=== PATIENT | female | born 1955 | race Caucasian/White ===

== ENCOUNTER 2022-04-18 13:29 | Emergency (ER) | payer OTHER, BC ==
[2022-04-18] MEDS ORDERED: NA CHLORIDE 0.9% 1,000 ML ONE (14:41)
[2022-04-18 14:49] LABS: Absolute Lymphocytes (CBC) 0.8 K/uL (0.7-4.9); Lymphocytes % 12.1 % (15.3-44.8); MCV 84.4 fL (80-100); MPV 7.4 fL (7.6-11.3); RBC Red Blood Cell Count 4.38 M/uL (3.86-4.86)
[2022-04-18 15:01] LABS: Albumin 2.5 g/dL (3.4-5.0); Bilirubin Total 0.4 mg/dL (0.2-1.0); Magnesium 2.6 mg/dL (1.8-2.4); Potassium 3.7 mmol/L (3.5-5.1); Protein, Total 7.9 g/dL (6.4-8.2); Troponin High Sensitivity 6.1 pg/mL (<58.9)
--- NOTE | 2022-04-18 15:35 | RAD REPORT ---
EXAM DESCRIPTION: RAD - Chest Single View - 04/18/2022 3:04 pm CLINICAL HISTORY: COUGH COMPARISON: Chest Pa And Lat (2 Views) dated 12/19/2018; ABDOMEN 1 VIEW KUB dated 05/08/2012 FINDINGS: Lines: None. Lungs: Coarsening of the pulmonary interstitium. Pleural: No significant pleural effusions or pneumothorax. Cardiac: The heart size is within normal limits. Bones: No acute fractures. Other: IMPRESSION: Nonspecific coarsening of the interstitium could reflect mild infection or inflammation such as a bronchitis. No consolidative airspace disease or edema.
[2022-04-18] MEDS ORDERED: ALBUTEROL 2.5 MG/3 ML NEB SOL ONE (17:18)
[2022-04-18] MEDS ORDERED: IPRATROPIUM BROM 0.5MG/2.5ML ONE (17:18)
[2022-04-18] MEDS ORDERED: predniSONE 20 MG TAB ONE (17:21)
[2022-04-18 17:23] LABS: Urine Blood Negative (Negative); Urine Glucose Negative (Negative); Urine Protein 1+ (Negative); Urine Specific Gravity 1.025 (1.005-1.030)
[2022-04-18 17:39] LABS: Urine Bacteria <20 /HPF (<20); Urine RBC <5 /HPF (None Seen)
[2022-04-18 17:40] LABS: Urine Mucus 2+ /HPF (None Seen)
--- NOTE | 2022-04-18 17:46 | ER ---
Nurse's Notes [facility] Name: Peggy Villasenor Age: 67 yrs Sex: Female : 1955 Arrival Date: 04/18/2022 Time: 13:33 Bed 5 Private MD: Petros Luna V Diagnosis: Acute bronchitis, unspecified;Coronavirus infection, unspecified;Muscle weakness (generalized) Presentation: 04/18 13:58 Chief complaint: Patient states: Covid positive for 15 days. States she had no appetite ll1 still, extreme fatigue, sleeps all day still No fever the past 4 days. Coronavirus screen: Vaccine status: Patient reports receiving the 2nd dose of the covid vaccine. Client denies travel out of the [place] in the last 14 days. chills, congestion, cough unrelated to allergies, diarrhea, difficulty breathing, fatigue, fever, headache, shortness of breath, Client presents with at least one sign or symptom that may indicate coronavirus-19. Standard/surgical mask placed on the client. Ebola Screen: Patient denies travel to an Ebola-affected area in the 21 days before illness onset. No acute neurological deficit is noted. Initial Sepsis Screen: Does the patient meet any 2 criteria? HR > 90 bpm. No. Patient's initial sepsis screen is negative. Does the patient have a suspected source of infection? Yes: Productive cough/pneumonia. Risk Assessment: Do you want to hurt yourself or someone else? Patient reports no desire to harm self or others. Onset of symptoms was April 03, 2022. 13:58 Method Of Arrival: Wheelchair ll1 13:58 Acuity: TIFFANIE 2 ll1 Triage Assessment: 14:01 General: Appears ill, Behavior is cooperative, appropriate for age. Pain: Complains of ll1 pain in all over Pain currently is 3 out of 10 on a pain scale. Quality of pain is described as aching. Neuro: Reports headache weakness. Respiratory: Reports shortness of breath cough that is. GI: Reports diarrhea. 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 - Social history:: Smoking status: Patient denies any tobacco usage or history of. Screenin:27 Abuse screen: Denies threats or abuse. Denies injuries from another. Nutritional kwong screening: no appetite . Tuberculosis screening: No symptoms or risk factors identified. Fall Risk Gait- Weak (10 pts.). Assessment: 14:27 General: Appears in no apparent distress. Behavior is calm, cooperative. Pain: Denies kwong pain. Neuro: No deficits noted. Level of Consciousness is awake, alert, obeys commands, Oriented to person, place, time, situation, Reports weakness. GI: Reports intolerance of fluids, intolerance of food. Vital Signs: 13:58 BP 109 / 56; Pulse 106; Resp 18; Temp 97.7; Pulse Ox 93% on R/A; Weight 93.89 kg; ll1 Height 5 ft. 8 in. (172.72 cm); Pain 3/10; 17:25 BP 126 / 70; Pulse 85; Resp 18; Pulse Ox 100% on Nebulizer Mask; kwong 13:58 Body Mass Index 31.47 (93.89 kg, 172.72 cm) ll1 ED Course: 13:33 Patient arrived in ED. rg4 13:33 Petros Luna MD is Private Physician. rg4 13:44 Adeline Meléndez MD is Attending Physician. sd2 14:00 Triage completed. ll1 14:01 Arm band placed on Patient placed in an exam room, on a stretcher. ll1 14:02 Rosalie Friedman, NHUNG is Primary Nurse. kwong 14:27 Patient has correct armband on for positive identification. Bed in low position. kwong 14:27 No provider procedures requiring assistance completed. kwong 14:34 Procalcitonin Sent. mb7 14:34 BNP Sent. mb7 14:34 Magnesium Sent. mb7 14:34 CMP Sent. mb7 14:34 Troponin High Sensitivity Sent. mb7 14:34 CBC with Diff Sent. mb7 14:34 EKG done, by ED staff, reviewed by Adeline Meléndez MD. Inserted saline lock: 20 gauge mb7 in right antecubital area, using aseptic technique. Blood collected. 15:06 XRAY Chest (1 view) In Process Unspecified. EDMS 17:24 Urine Microscopic Only Sent. kwong 17:45 Petros Luna MD is Referral Physician. sd2 17:57 IV discontinued, intact, Pressure dressing applied. kwong Administered Medications: 14:55 Drug: NS 0.9% 1000 ml Route: IV; Rate: 1000 ml; Site: right antecubital; kwong 17:24 Drug: DuoNeb (albuterol 2.5 mg, ipratropium 0.5 mg) (3:1) (2.5 mg - 0.5 mg) 3 ml Route: kwong Nebulizer; 17:24 Follow up: Response: No adverse reaction kwong 17:24 Drug: predniSONE 60 mg Route: PO; kwong 17:24 Follow up: Response: No adverse reaction kwong Medication: 14:27 VIS not applicable for this client. kwong Outcome: 17:46 Discharge ordered by . sd2 17:57 Discharged to home ambulatory. kwong 17:57 Condition: good 17:57 Discharge instructions given to patient, family, Prescriptions given X 3. 17:57 Patient left the ED. kwong Signatures: Dispatcher [employer] Precious Argueta 4 Blanca Stover RN RN ll1 Jennifer Nguyen mb7 Rosalie Friedman RN RN ha Dunlop, Stephanie, MD MD sd2
--- NOTE | 2022-04-18 17:46 | EDPHYS ---
Physician Documentation [facility] Name: Peggy Villasenor Age: 67 yrs Sex: Female : 1955 Arrival Date: 04/18/2022 Time: 13:33 Bed 5 Private MD: Petros Luna V ED Physician Adeline Meléndez HPI: 04/18 14:10 This 67 yrs old Female presents to ER via Wheelchair with complaints of Weakness, sd2 Dehydration. 14:10 67 yo F presents with CC of generalized weakness. Reports she tested positive for COVID sd2 2 weeks ago and initially had intermittent fever for 1 week which has since subsided. She continues to have productive cough, congestion and progressively worsening weakness. Denies any chest pain or SOB. Denies vomiting but does endorse ongoing diarrhea. States lack of appetite but is drinking Gatorade and Boost at home.. Historical: - Allergies: 14:00 PENICILLINS; ll1 - PMHx: 14:00 RA; ll1 - PSHx: 14:00 gastric bypass; ll1 - Immunization history:: Client reports receiving the 2nd dose of the Covid vaccine, Flu vaccine status is unknown. - Social history:: Smoking status: Patient denies any tobacco usage or history of. ROS: 14:10 Constitutional: Positive for fever, malaise, poor PO intake, Negative for body aches, sd2 chills. 14:10 Eyes: Negative for itching, pain, redness. 14:10 ENT: Positive for sinus congestion, Negative for injury or acute deformity, ear pain. 14:10 Cardiovascular: Negative for chest pain, edema, acute changes. 14:10 Respiratory: Positive for cough, Negative for shortness of breath. 14:10 Abdomen/GI: Positive for diarrhea, Negative for abdominal pain, nausea and vomiting. 14:10 : Negative for urinary symptoms, burning with urination, difficulty urinating. 14:10 MS/extremity: Negative for injury or acute deformity, deformity, rash. 14:10 Skin: Negative for cellulitis, rash, swelling. 14:10 Neuro: Positive for weakness, Negative for numbness, tingling. Exam: 14:10 Constitutional: This is a well developed, well nourished patient who is awake, alert, sd2 and in no acute distress. Head/Face: Normocephalic, atraumatic. Chest/axilla: Normal chest wall appearance and motion. Nontender with no deformity. Cardiovascular: Regular rate and rhythm with a normal S1 and S2. No gallops, murmurs, or rubs. 2+ distal pulses. 2 second capillary refill. Respiratory: Lungs have equal breath sounds bilaterally, clear to auscultation and percussion. No rales, rhonchi or wheezes noted. No increased work of breathing, no retractions or nasal flaring. Abdomen/GI: Soft, non-tender, with normal bowel sounds. No guarding or rebound. No evidence of tenderness throughout. Skin: Warm, dry with normal turgor. Normal color with no rashes, no lesions, and no evidence of cellulitis. MS/ Extremity: Pulses equal, no cyanosis. Neurovascular intact. Full, normal range of motion. Ambulatory without difficulty. Psych: Awake, alert, with orientation to person, place and time. Behavior, mood, and affect are within normal limits. 14:27 ECG was reviewed by the Attending Physician. NSR, rate 87, no STEMI criteria, PRWP sd2 Vital Signs: 13:58 BP 109 / 56; Pulse 106; Resp 18; Temp 97.7; Pulse Ox 93% on R/A; Weight 93.89 kg; ll1 Height 5 ft. 8 in. (172.72 cm); Pain 3/10; 17:25 BP 126 / 70; Pulse 85; Resp 18; Pulse Ox 100% on Nebulizer Mask; kwong 13:58 Body Mass Index 31.47 (93.89 kg, 172.72 cm) ll1 MDM: 14:08 Patient medically screened. sd2 14:10 Data reviewed: vital signs, nurses notes. sd2 17:43 Data reviewed: lab test result(s), EKG, radiologic studies. Counseling: I had a sd2 detailed discussion with the patient and/or guardian regarding: the historical points, exam findings, and any diagnostic results supporting the discharge/admit diagnosis, lab results, radiology results, the need for outpatient follow up, to return to the emergency department if symptoms worsen or persist or if there are any questions or concerns that arise at home. Medical screen evaluation completed. EMTALA emergency medical condition absent. ED course: Labs and imaging reviewed. No significant acute abnormalities. EKG with no ischemic changes. Trop neg. CXR with possible bronchitis. Pt feeling improved following treatment. Advised of results and will start on steroids and give albuterol inhaler for home in addition to antibiotics. Pt recently completed Z-pack so will place on doxycycline. Pt in agreement with treatment plan and verbalizes understanding of discharge plan and strict return precautions.. 04/18 14:09 Order name: CBC with Diff; Complete Time: 15:54 sd2 04/18 14:09 Order name: CMP; Complete Time: 15:54 sd2 04/18 14:09 Order name: Magnesium; Complete Time: 15:54 04/18 14:09 Order name: Troponin High Sensitivity; Complete Time: 15:54 sd2 04/18 14:09 Order name: BNP; Complete Time: 15:54 sd04/18 14:09 Order name: Procalcitonin; Complete Time: 15:54 04/18 14:09 Order name: EKG - Nurse/Tech; Complete Time: 14:34 sd2 04/18 14:09 Order name: XRAY Chest (1 view); Complete Time: 15:54 04/18 14:09 Order name: Urine Dipstick-Ancillary (obtain specimen); Complete Time: 17:24 sd2 04/18 14:09 Order name: Urine Microscopic Only; Complete Time: 17:43 sd04/18 17:24 Order name: Urine Dipstick-Ancillary; Complete Time: 17:32 EDMS 04/18 14:34 Order name: IV Saline Lock; Complete Time: 14:34 mb7 Administered Medications: 14:55 Drug: NS 0.9% 1000 ml Route: IV; Rate: 1000 ml; Site: right antecubital; kwong 17:24 Drug: DuoNeb (albuterol 2.5 mg, ipratropium 0.5 mg) (3:1) (2.5 mg - 0.5 mg) 3 ml Route: kwong Nebulizer; 17:24 Follow up: Response: No adverse reaction kwong 17:24 Drug: predniSONE 60 mg Route: PO; kwong 17:24 Follow up: Response: No adverse reaction kwong Disposition: 17:49 Chart complete. sd2 Disposition Summary: 04/18/22 17:46 Discharge Ordered Location: Home sd2 Problem: an ongoing problem sd2 Symptoms: have improved sd2 Condition: Stable sd2 Diagnosis - Acute bronchitis, unspecified sd2 - Coronavirus infection, unspecified sd2 - Muscle weakness (generalized) sd2 Followup: sd2 - With: Petros Luna MD - When: 2 - 3 days - Reason: Recheck today's complaints, Continuance of care, Re-evaluation by your physician Followup: sd2 - With: Emergency Department - When: As needed - Reason: Discharge Instructions: - Discharge Summary Sheet sd2 - Acute Bronchitis, Adult sd2 - Weakness sd2 - 10 Things You Can Do to Manage Your COVID-19 Symptoms at Home - [facility] sd2 Forms: - Medication Reconciliation Form sd2 - Thank You Letter sd2 - Antibiotic Education sd2 - Prescription Opioid Use sd2 Prescriptions: - albuterol sulfate 90 mcg/actuation Inhalation HFA aerosol inhaler - inhale 2 puff by INHALATION route every 4-6 hours As needed for cough and sd2 trouble breathing; 1 Inhaler; Refills: 0, Product Selection Permitted - Doxycycline Hyclate 100 mg Oral Tablet - take 1 tablet by ORAL route every 12 hours; 20 tablet; Refills: 0, Product sd2 Selection Permitted - Prednisone 20 mg Oral Tablet - take 2 tablets by ORAL route once daily for 5 days; 10 tablet; Refills: 0, sd2 Product Selection Permitted Signatures: Dispatcher [employer] Blanca Murray RN RN [facility] Jennifer Nguyen 7 Rosalie Friedman RN RN ha Dunlop, Stephanie, MD MD sd2
[2022-04-18 19:04] VITALS: TEMP 97.7
[2022-04-18 19:18] VITALS: BP 126/70; O2SAT 100
--- NOTE | 2022-04-19 12:21 | EKG ---
Test Date: 2022-04-18 Test Time: 14:24:04 Sling Operator: MB MEASUREMENT RESULTS: Intervals: Rate: 87 NE: 164 QRSD: 82 QT: 390 QTc: 469 Dowell: P: 65 NE: 164 QRS: -28 T: 67 INTERPRETIVE STATEMENTS: Normal sinus rhythm Septal infarct, age undetermined T wave abnormality, consider anterior ischemia Abnormal ECG No previous ECG available for comparison Electronically Signed On 04-19-22 12:20:15 CDT by Riki Morales
== END 2022-04-18 17:57 | disposition home or self-care (01) ==
LOC: ER 13:29
DX: U07.1 COVID-19 (principal); J20.9 Acute bronchitis, unspecified; Z88.0 Allergy status to penicillin
CPT/HCPCS: 93005; 85025; 36415; 83735; 84484; 80053; 84145; 83880; 71045; 94640; 99284; J7512; J7030; 81003; 81015